=== PATIENT | female | born 1980 | race African-American/Black ===

== ENCOUNTER 2016-10-22 20:55 | Emergency (ER) | payer OTHER ==
[~2016-10-22] VITALS: Ht 157.5 cm; Wt 66.7 kg
[~2016-10-22 20:55] MED LIST: MOTRIN 800MG T800 MG PO; PERCOCET 325 MG1 TA2 PO
[2016-10-22 21:13] VITALS: BP 114/76
--- NOTE | 2016-10-22 22:22 | ED GENERAL ADULT ---
History of Present Illness General Chief Complaint: General Adult Stated Complaint: GOT STUCK BY DISPOSABLE RAZOR AT WORK PER PT Source: patient Exam Limitations: no limitations Vital Signs & Intake/Output Vital Signs & Intake/Output Vital Signs Date Time Temp Pulse Resp B/P Pulse O2 O2 Flow FiO2 Ox Delivery Rate 10/227 86 10/22 2112 98.2 85 20 114/76 98 Room Air Allergies Coded Allergies: NO KNOWN ALLERGIES (10/22/16) Reconcile Medications OXYCODONE HCL/ACETAMINOPHEN (Percocet 5-325 MG Tablet) 325 MG/5 MG TAB 1 TAB PO Q4P PRN PAIN SCALE 7-8 Yibuprofen (Motrin 800MG Tab) 800 MG TAB 800 MG PO Q6P PRN PAIN SCALE 4-6 Triage Note: TRIAGE: PT TO ER C/C STUCK BY USED DISPOSABLE RAZOR IN R INDEX FINGER WHILE AT WORK APPROX 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 Triage Nurses Notes Reviewed? yes : No Patient currently breastfeeds: No HPI: This patient is a 36-year-old female who presented to the emergency department today for evaluation of exposure to bodily fluid. 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 The patient reported that she was wearing gloves. She denied any pain. The patient does not know who the source patient is and has no way of identifying the source patient. The patient is up-to-date on her hepatitis B vaccinations. She does not remember when her last tetanus immunization was. (MIRTA MUHAMMAD PA-C) Past History Travel History Traveled to [place] past 21 day No Medical History Any Pertinent Medical History? see below for history Neurological: NONE EENT: NONE Cardiovascular: NONE Respiratory: NONE Gastrointestinal: NONE Hepatic: NONE Renal: NONE Musculoskeletal: NONE Psychiatric: NONE Endocrine: NONE Blood Disorders: NONE Cancer(s): NONE HUMAN RESOURCES BENEFITS ASSISTANT/Reproductive: preeclampsia Tetanus Vaccine: 10/22/16 Surgical History Surgical History: Psychosocial History What is your primary language Tajik Tobacco Use: Never used ETOH Use: occasional use Illicit Drug Use: denies illicit drug use Family History Hx Contributory? No (MIRTA MUHAMMAD PA-C) Review of Systems Review of Systems Constitutional: Reports: no symptoms. EENTM: Reports: no symptoms. Respiratory: Reports: no symptoms. Cardiovascular: Reports: no symptoms. GI: Reports: no symptoms. Musculoskeletal: Reports: no symptoms. Skin: Reports: see HPI. Neurological/Psychological: Reports: no symptoms. All Other Systems: Reviewed and Negative (MIRTA MUHAMMAD PA-C) Physical Exam Physical Exam General Appearance: well developed/nourished, no apparent distress, alert, awake Comments: Well-developed well-nourished person in no acute distress HEENT: Normal EENT exam, moist mucous membranes Neck: Supple Back: Normal gait Cardiovascular: Regular rate and rhythm with no murmurs Respiratory: No respiratory distress. Speaking in full sentences Extremity: Normal and equal pulses Neuro: Alert oriented x3, motor sensory normal, cranial nerves II through XII grossly intact. Skin: No appreciable rash on exposed skin, skin is warm and dry. Approximately 1 cm in length, superficial abrasion to the distal aspect of the right second digit with no active bleeding, no surrounding erythema or edema, no foreign body in the wound site, and nontender to palpation Psych: Mood and affect is normal, memory and judgment is normal. Core Measures ACS in differential dx? No CVA/TIA Diagnosis: No Severe Sepsis Present: No Septic Shock Present: No (MIRTA MUHAMMAD PA-C) Progress Differential Diagnoses I considered the following diagnoses in my evaluation of the patient: [ Occupational exposure, skin abrasion, skin laceration, skin tear, skin avulsion] Plan of Care: Orders Procedure Date/time Status HIV EXPOSURE/NEEDLESTICK 10/22 2213 Active HUMAN BETA HCG SCREEN 10/22 2213 Active HEPT C ANTIBODY 10/22 2213 Active HEPT B SURFACE ANTIBODY 10/22 2213 Active GAMMA GLUTAMYL TRANSFERASE 10/22 2213 Active COMPREHENSIVE METABOLIC PANEL 10/22 2213 Active CBC WITHOUT DIFFERENTIAL 10/22 2213 Complete TRNSFRASE ASPART AMINO 10/22 2213 Active TRNSFRAS ALANINE AMINO 10/22 2213 Active Laboratory Tests 10/22/162223: Anion Gap 8, Estimated GFR > 60, BUN/Creatinine Ratio 22.5, Glucose 68, Calcium 8.9, Total Bilirubin 0.5, GGT 11 L, AST 16, ALT 26, Alkaline Phosphatase 50, Total Protein 6.9, Albumin 3.9, Globulin 3.0, Albumin/Globulin Ratio 1.3, Total Beta HCG NEGATIVE, CBC w Diff NO MAN DIFF REQ, RBC 4.31, MCV 87.7, MCH 28.8, RDW 12.9, MPV 8.2, Gran % 37.0 L, Lymphocytes % 51.5 H, Monocytes % 7.2, Eosinophils % 3.3, Basophils % 1.0, Absolute Granulocytes 2.7, Absolute Lymphocytes 3.7 H, Absolute Monocytes 0.5, Absolute Eosinophils 0.2, Absolute Basophils 0.1, PUBS MCHC 32.9 L, Hep Bs Antibody Pending, Hepatitis C Antibody Pending, HIV 1&2 Antibody Pending Initial ED EKG: none Comments: 10/22/2016 10:45:07 PM: I discussed this patient with a physician from the postexposure prophylaxis hotline. He reported that there has been no known documentation of anyone juanito HIV from a razor cut. He reported that he would recommend discouraging this patient from starting HIV prophylaxis at this time. He reported that her chance of juanito HIV from this exposure is very minimal. 10/22/2016 10:50:40 PM: Discussed this patient with Dr. Smith who is in agreement with the plan. This patient will call the emergency department in the morning to receive her final laboratory results. She does not want HIV prophylaxis at this time. (MIRTA MUHAMMAD PA-C) Departure Departure Disposition: HOME OR SELF CARE Condition: Stable Clinical Impression Primary Impression: Accident caused by sharp edge tool Qualifiers: Encounter type: initial encounter Qualified Code: W27.8XXA - Contact with other nonpowered hand tool, initial encounter Referrals: PATIENT HAS NO PRIMARY CARE DR (PCP/Family) Additional Instructions: Please call the emergency department tomorrow morning and ask to speak to Dr. Gonzalez to obtain the results of your laboratory studies done tonight; the number to the emergency department is [phone]. Please return to the emergency department for any worsening symptoms or concerns. Departure Forms: Customer Survey Employee Industrial Accident General Discharge Information (MIRTA MUHAMMAD PA-C) PA/RETIREMENT BENEFITS SPECIALIST Co-Sign Statement Statement: ED Attending supervision documentation- [] I saw and evaluated the patient. I have also reviewed all the pertinent lab results and diagnostic results. I agree with the findings and the plan of care as documented in the PA's/RETIREMENT BENEFITS SPECIALIST's documentation. [X] I have reviewed the ED Record and agree with the PA's/RETIREMENT BENEFITS SPECIALIST's documentation. [] Additions or exceptions (if any) to the PAs/RETIREMENT BENEFITS SPECIALIST's note and plan are summarized below: [] (FOREIGN MORTON,JEREMÍAS Garza) Critical Care Note Critical Care Note Critical Care Time: non-applicable (SABINA SANTIAGO,MIRTA)
[2016-10-22 22:32] LABS: ABSOLUTE BASOPHIL COUNT 0.1 /CUMM (0.0-0.2); ABSOLUTE EOSINOPHIL COUNT 0.2 /CUMM (0.0-0.7); ABSOLUTE GRANULOCYTE CT 2.7 /CUMM (1.4-6.5); ABSOLUTE LYMPH COUNT 3.7 /CUMM (1.2-3.4); ABSOLUTE MONOCYTE COUNT 0.5 /CUMM (0.10-0.60); EOSINOPHIL % 3.3 % (0-5); HEMATOCRIT 37.8 % (37-47); MEAN CORPUSCULAR HGB 28.8 PG (27.0-31.0); MEAN CORPUSCULAR HGB CONC 32.9 G/DL (33.0-37.0); MEAN CORPUSCULAR VOLUME 87.7 FL (81.0-99.0); MEAN PLATELET VOLUME 8.2 FL (7.4-10.4); PLATELET COUNT 246 /CUMM (130-400); RBC DISTRIBUTION WIDTH 12.9 % (11.5-14.5); RED BLOOD CELL CT 4.31 /CUMM (4.20-5.40); WHITE BLOOD CELL COUNT 7.2 /CUMM (4.8-10.8)
== END 2016-10-22 23:08 ==
LOC: ERH 20:55
PROVIDERS: Physician Assistant
DX: S61.210A Laceration without foreign body of right index finger without damage to nail, initial encounter (principal); Z77.21 Contact with and (suspected) exposure to potentially hazardous body fluids; W26.8XXA Contact with other sharp object(s), not elsewhere classified, initial encounter
CPT/HCPCS: 86803; 87389; 90471; 90714